=== PATIENT | female | born 1980 | race Hispanic/Latino ===

== ENCOUNTER 2022-08-25 17:16 | Emergency (ER) | payer OTHER, SELFPAY ==
[2022-08-25 17:37] VITALS: BP 107/67; PULSE 56; RESP 16; TEMP 36.7; O2SAT 100
--- NOTE | 2022-08-25 18:33 | ED.FEMALEGU ---
HPI - Female Genitourinary General Chief complaint: Urogenital-Female Stated complaint: UTI Time Seen by Provider: 08/25/22 17:45 Source: patient Mode of arrival: ambulatory Limitations: no limitations History of Present Illness HPI Narrative: Chely is a 42-year-old female patient presenting to the clinic today with complaints possible urinary tract infection. She reports that she is having burning to the skin of the vagina with urination and pain with wiping. Also noted some vaginal discharge and blood when she wiped. Is concerned about a possible sexually transmitted infection. She would like STD testing as well as her urine checked. Related Data Allergies Allergy/AdvReac Type Severity Reaction Status Date / Time No Known Allergies Allergy Verified 08/25/22 18:44 Review of Systems Review of Systems: Pertinent positives per HPI. Patient denies any fever, chills, rash, headache, visual changes, dizziness, cough, shortness of breath, chest pain, palpitations, nausea, vomiting, diarrhea, constipation, abdominal pain, or any PMFSH Comments At the time of my signature, I reviewed and agree with the nursing past medical, surgical, social, and family history. There is no relevant family history pertinent to the patient complaint. Exam Narrative: General: Well-developed, well nourished, in no apparent distress Head: Normocephalic, atraumatic. Cardio: Regular rate and rhythm, s1 and s2 normal, no murmur appreciated. Resp: Clear to auscultation bilaterally, no rhonchi, rales, wheezing or rubs. Abdomen: Soft, pliable, bowel sounds present in all quadrants, non-tender to palpation, no CVAT tenderness. : Pelvic exam performed with Rory) at bedside. Verbal consent obtained from patient. Normal external female genitalia without lesions or masses, noted excoriation /redness to the vaginal on us as well as the labial folds Urinary meatus: patent without discharge, Vagina: No lesions, masses, white vaginal discharge in the pelvic full Cervix: pink without mass or lesions, mildly friable with some bleeding after cervical swabs Adnexa: without palpable mass or tenderness. cervical swabs obtained for chlamydia, gonorrhea, bacterial vaginosis, and trich- sent to lab Course Course Emergency Course: Portions of this record may have been created with voice recognition software. Level of Care: Express Care Visit Vital Signs Vital signs: Vital Signs Temperature 36.7 C 08/25/22 17:37 Pulse Rate 56 L 08/25/22 17:37 Respiratory Rate 16 08/25/22 17:37 Blood Pressure 107/67 08/25/22 17:37 Pulse Oximetry 100 08/25/22 17:37 Oxygen Delivery Room Air 08/25/22 17:37 Temperature 36.7 C 08/25/22 17:37 Pulse Rate 56 L 08/25/22 17:37 Respiratory Rate 16 08/25/22 17:37 Blood Pressure 107/67 08/25/22 17:37 Pulse Oximetry 100 08/25/22 17:37 Oxygen Delivery Room Air 08/25/22 17:37 Vital signs reviewed MDM - Female Genitourinary MDM Narrative Medical decision making narrative: at the time of visit patient is resting comfortably on the exam table. I suspect the patient has vaginitis. Prescription for Diflucan and metronidazole was sent to the pharmacy. Will send STD testing off and treat off of results. Supportive measures were discussed with the patient she voiced understanding of discharge instructions and agrees to treatment plan. Differential Diagnosis Differential diagnosis: Likely urinary tract infection, bacterial vaginosis, trichomoniasis, cervicitis, vaginitis, cystitis and other ( Gonorrhea) Lab Data Labs: Urine Glucose Negative Reference Range: Negative Urine Bilirubin Negative Reference Range: Negative Urine Ketone Negative Reference Range: Negative Urine Specific [place]
== END 2022-08-25 19:09 | disposition home or self-care (01) ==
PROVIDERS: Emergency Provider Nurse Practitioner Family; PCP Registered Nurse
DX: N76.0 Acute vaginitis (principal)
CPT/HCPCS: 81003; 87070; 87086; 87147; 87491; 87591; 87661; 99204; G0463